=== PATIENT | female | born 1960 ===

== ENCOUNTER 2025-01-15 11:41 | Emergency (ER) | payer SELFPAY ==
[~2025-01-15] VITALS: Ht 157.5 cm; Wt 59.0 kg
[2025-01-15 11:45] VITALS: O2SAT 98
[2025-01-15 11:47] VITALS: TEMP 36.7; O2SAT 98
[2025-01-15] MEDS ORDERED: AZIT500T8 MT (13:25)
[2025-01-15] MEDS ORDERED: DEXTL MT (13:25)
[2025-01-15 14:13] VITALS: BP 127/64; PULSE 75; RESP 16
[2025-01-15] MEDS: DEXAMETHASONE 10 MG/ML VIAL IV ONE (14:13)
[2025-01-15] MEDS: KETOROLAC 30MG/ML VIAL IM ONE (14:13)
== END 2025-01-15 13:55 | disposition home or self-care (01) ==
LOC: ER 11:41
DX: B34.9 Viral infection, unspecified (principal)
CPT/HCPCS: 71045; 99284